=== PATIENT | male | born 1985 | race Caucasian/White ===

== ENCOUNTER 2017-05-03 15:17 | Emergency (ER) | payer MEDICAID ==
[2017-05-03 15:49] VITALS: BP 113/54
--- NOTE | 2017-05-03 16:24 | EDM.PDOC ---
ED HPI GENERAL MEDICAL PROBLEM - General Chief Complaint: General Stated Complaint: FLU CHECK FOR WORK Time Seen by Provider: 05/03/17 16:20 Source of Information: Reports: Patient History Limitations: Reports: No Limitations - History of Present Illness INITIAL COMMENTS - FREE TEXT/NARRATIVE: pt was diagnosed with influ b and missed 2 weeks of work. He is now feeling well and is ready to go back to work. Associated Symptoms: Reports: Other (pt is here for a note to go back to work. ) - Related Data Allergies Allergy/AdvReac Type Severity Reaction Status Date / Time meperidine HCl [From Demerol] Allergy Intermediate Itching Verified 07/19/15 05: 01 tramadol Allergy Intermediate Hives Verified 07/19/15 05:01 Home Meds: Home Meds NK [No Known Home Meds] 07/16/15 [History] Past Medical History HEENT History: Reports: Other (See Below) Other HEENT History: poor dental care Gastrointestinal History: Reports: Other (See Below) Other Gastrointestinal History: Possible ulcers in past. Musculoskeletal History: Reports: Fracture Other Musculoskeletal History: Bilateral wrist fx Psychiatric History: Reports: Addiction, Anxiety Dermatologic History: Reports: Other (See Below) Other Dermatologic History: Tatoos - Infectious Disease History Infectious Disease History: Reports: Chicken Pox Social & Family History - Family History Family Medical History: Noncontributory - Tobacco Use Smoking Status *Q: Current Every Day Smoker Years of Tobacco use: 15 Packs/Tins Daily: 1 Used Tobacco, but Quit: No Second Hand Smoke Exposure: Yes - Alcohol Use Days Per Week of Alcohol Use: 0 - Recreational Drug Use Recreational Drug Use: Yes Drug Use in Last 12 Months: Yes Recreational Drug Type: Reports: Marijuana/Hashish Recreational Drug Use Frequency: Daily Recreational Drug Last Use: 01/31/13 ED ROS GENERAL - Review of Systems Review Of Systems: See Below Constitutional: Reports: No Symptoms HEENT: Reports: No Symptoms Respiratory: Reports: No Symptoms Cardiovascular: Reports: No Symptoms Endocrine: Reports: No Symptoms GI/Abdominal: Reports: No Symptoms : Reports: No Symptoms ED EXAM, GENERAL - Physical Exam Exam: See Below Free Text/Narrative:: Pt is here for a note to go back to work Exam Limited By: No Limitations General Appearance: Alert Course - Vital Signs Last Recorded V/S: Last Vital Signs Temp 36.1 C 05/03/17 15:45 Pulse Resp 16 05/03/17 15:45 BP 113/54 L 05/03/17 15:45 Pulse Ox 99 05/03/17 15:45 - Re-Assessments/Exams Free Text/Narrative Re-Assessment/Exam: 05/03/17 16:22 note was written for him to go back to work Departure - Departure Time of Disposition: 16:23 Disposition: Home, Self-Care 01 Condition: Fair Clinical Impression: Return to work evaluation - Discharge Information Referrals: PCP,None [Primary Care Provider] - Care Plan Goals: note given to pt.
== END 2017-05-03 16:43 | disposition home or self-care (01) ==
LOC: JP.ED 15:17
DX: Z02.1 Encounter for pre-employment examination (principal); F17.210 Nicotine dependence, cigarettes, uncomplicated; Z88.5 Allergy status to narcotic agent
CPT/HCPCS: 99283

== ENCOUNTER 2017-05-31 22:35 | Emergency (ER) | payer MEDICAID ==
[2017-05-31 23:09] VITALS: BP 110/70
--- NOTE | 2017-05-31 23:54 | EDM.PDOC ---
ED HPI GENERAL MEDICAL PROBLEM - General Chief Complaint: General Stated Complaint: COUGH Time Seen by Provider: 05/31/17 23:48 Source of Information: Reports: Patient, RN Notes Reviewed History Limitations: Reports: No Limitations - History of Present Illness INITIAL COMMENTS - FREE TEXT/NARRATIVE: 32-year-old gentleman presents to the emergency department today complaint of cough and not feeling well he states is been ill for about 3 days his daughter was recently diagnosed with influenza and he would like to be checked he is not had any fevers. denies pain Pain Score (Numeric/FACES): 0 - Related Data Allergies Allergy/AdvReac Type Severity Reaction Status Date / Time meperidine HCl [From Demerol] Allergy Intermediate Itching Verified 05/31/17 23: 17 tramadol Allergy Intermediate Hives Verified 05/31/17 23:17 Home Meds: Home Meds NK [No Known Home Meds] 07/16/15 [History] Past Medical History HEENT History: Reports: Other (See Below) Other HEENT History: poor dental care Gastrointestinal History: Reports: Other (See Below) Other Gastrointestinal History: Possible ulcers in past. Musculoskeletal History: Reports: Fracture Other Musculoskeletal History: Bilateral wrist fx Psychiatric History: Reports: Addiction, Anxiety, Other (See Below) Other Psychiatric History: meth Dermatologic History: Reports: Other (See Below) Other Dermatologic History: Tatoos - Infectious Disease History Infectious Disease History: Reports: Chicken Pox Social & Family History - Family History Family Medical History: Noncontributory - Tobacco Use Smoking Status *Q: Current Every Day Smoker Years of Tobacco use: 15 Packs/Tins Daily: 1 Used Tobacco, but Quit: No Second Hand Smoke Exposure: Yes - Caffeine Use Caffeine Use: Reports: Soda - Alcohol Use Days Per Week of Alcohol Use: 0 - Recreational Drug Use Recreational Drug Use: Yes Drug Use in Last 12 Months: No Recreational Drug Type: Reports: Marijuana/Hashish, Methamphetamine Recreational Drug Use Frequency: Daily Recreational Drug Last Use: 01/31/13 ED ROS GENERAL - Review of Systems Review Of Systems: See Below Constitutional: Denies: Fever HEENT: Reports: No Symptoms Respiratory: Reports: Cough. Denies: Shortness of Breath Cardiovascular: Reports: No Symptoms GI/Abdominal: Reports: No Symptoms : Reports: No Symptoms ED EXAM, GENERAL - Physical Exam Exam: See Below Exam Limited By: No Limitations General Appearance: Alert, WD/WN, No Apparent Distress Eye Exam: Bilateral Eye: Normal Inspection Ears: Normal External Exam, Normal Canal, Hearing Grossly Normal, Normal TMs Nose: Normal Inspection, Normal Mucosa, No Blood Throat/Mouth: Normal Inspection, Normal Lips, Normal Teeth, Normal Gums, Normal Oropharynx, Normal Voice, No Airway Compromise Head: Atraumatic, Normocephalic Neck: Normal Inspection, Supple, Non-Tender, Full Range of Motion Respiratory/Chest: No Respiratory Distress, Lungs Clear, Normal Breath Sounds, No Accessory Muscle Use, Chest Non-Tender Cardiovascular: Regular Rate, Rhythm, No Murmur Course - Vital Signs Last Recorded V/S: Last Vital Signs Temp 96.7 F 05/31/17 23:27 Pulse 89 05/31/17 23:27 Resp 14 05/31/17 23:27 BP 110/70 05/31/17 23:27 Pulse Ox 96 05/31/17 23:27 - Orders/Labs/Meds Orders: Active Orders 24 hr Category Date Time Status INFLUENZA A+B AG SCREEN [RM] Stat Lab 05/31/17 23:24 Ordered Departure - Departure Time of Disposition: 23:53 Disposition: Home, Self-Care 01 Condition: Good Clinical Impression: Viral syndrome - Discharge Information Referrals: PCP,None [Primary Care Provider] - Additional Instructions: Recommend symptoms care such as pseudoephedrine, Please followup with your primary care provider in 3-5 days if not better, please call return to the emergency department with worsening of symptoms. - My Orders Last 24 Hours: My Active Orders 05/31/17 23:24 INFLUENZA A+B AG SCREEN [RM] Stat - Assessment/Plan Last 24 Hours: My Active Orders 05/31/17 23:24 INFLUENZA A+B AG SCREEN [RM] Stat Plan: Assessment Acuity = acute Site and laterality = viral syndrome Etiology = unknown etiology Manifestations = sinus congestion, cough Location of injury = Home Lab values = influenza A and B both negative Plan Did review lab work with him recommend symptomatic treatment [id number] such as pseudoephedrine follow-up with primary care 3-5 days if no improvement This note was dictated using HALKAR voice recognition software please call with any questions on syntax or maura.
== END 2017-06-01 00:01 | disposition home or self-care (01) ==
LOC: JP.ED 22:35
DX: B34.9 Viral infection, unspecified (principal); F17.210 Nicotine dependence, cigarettes, uncomplicated; Z88.8 Allergy status to other drugs, medicaments and biological substances
CPT/HCPCS: 87804; 99283; 99284

== ENCOUNTER 2019-01-06 09:40 | Emergency (ER) | payer SELFPAY ==
[2019-01-06 09:47] VITALS: BP 113/69; PULSE 70
[2019-01-06] MEDS ORDERED: Lactated Ringers 1,000 ML IV ONE (09:50)
[2019-01-06] MEDS ORDERED: Ketorolac 30 MG/ML SDV IVPUSH ONE (09:50)
--- NOTE | 2019-01-06 09:56 | EDM.PDOC ---
ED HPI GENERAL MEDICAL PROBLEM - General Chief Complaint: Abdominal Pain Stated Complaint: PAIN IN STOMACH AREA Time Seen by Provider: 01/06/19 09:45 Source of Information: Reports: Patient, EMS, Old Records History Limitations: Reports: No Limitations - History of Present Illness INITIAL COMMENTS - FREE TEXT/NARRATIVE: 33 yo male presents via EMS with onset about 0500h today of RUQ abdominal pain. He had recurrent vomiting with this pain. No hematemesis. No fever. No diarrhea. He has a pHx of pancreatitis, kidney stones, and gastritis. He says this pain reminds him of his kidney stone pain. EMS administered fentanyl and Zofran en route with relief. Onset: Today Onset Date: 01/06/19 Onset Time: 05:00 Duration: Hour(s): Location: Reports: Abdomen (RUQ) Quality: Reports: Ache Severity: Severe Improves with: Reports: Medication Worsens with: Reports: Other (unknown) Context: Reports: Other (See HPI) Associated Symptoms: Reports: Nausea/Vomiting. Denies: Fever/Chills Treatments DIRECTOR TELEVISION: Reports: IV/IO, Other Medication(s) Right Upper Abdomen Pain Score (Numeric/FACES): 5 - Related Data Allergies Allergy/AdvReac Type Severity Reaction Status Date / Time meperidine HCl [From Demerol] Allergy Intermediate Itching Verified 05/31/17 23: 17 tramadol Allergy Intermediate Hives Verified 05/31/17 23:17 Home Meds: Home Meds NK [No Known Home Meds] 07/16/15 [History] Past Medical History - Past Health History Medical/Surgical History: Denies Medical/Surgical History HEENT History: Reports: Other (See Below) Other HEENT History: poor dental care Gastrointestinal History: Reports: Other (See Below) Other Gastrointestinal History: Possible ulcers in past. Musculoskeletal History: Reports: Fracture Other Musculoskeletal History: Bilateral wrist fx Psychiatric History: Reports: Addiction, Anxiety, Other (See Below) Other Psychiatric History: meth Dermatologic History: Reports: Other (See Below) Other Dermatologic History: Tatoos - Infectious Disease History Infectious Disease History: Reports: Chicken Pox Social & Family History - Family History Family Medical History: Noncontributory - Tobacco Use Smoking Status *Q: Current Every Day Smoker Years of Tobacco use: 15 Packs/Tins Daily: 1 - Caffeine Use Caffeine Use: Reports: Soda - Recreational Drug Use Recreational Drug Use: Yes Drug Use in Last 12 Months: Yes Recreational Drug Type: Reports: Marijuana/Hashish Recreational Drug Use Frequency: Daily ED ROS GENERAL - Review of Systems Review Of Systems: See Below Constitutional: Reports: Decreased Appetite HEENT: Reports: No Symptoms Respiratory: Reports: No Symptoms Cardiovascular: Reports: No Symptoms Endocrine: Reports: No Symptoms GI/Abdominal: Reports: Abdominal Pain, Anorexia, Nausea, Vomiting. Denies: Black Stool, Bloody Stool, Constipation, Diarrhea, Decreased Appetite, Distension, Flatus, Hematemesis, Hematochezia, Melena : Reports: No Symptoms Musculoskeletal: Reports: No Symptoms Skin: Reports: No Symptoms Neurological: Reports: No Symptoms Psychiatric: Reports: No Symptoms ED EXAM, GI/ABD - Physical Exam Exam: See Below Exam Limited By: No Limitations General Appearance: Alert, No Apparent Distress, Thin Eyes: Bilateral: Normal Appearance Ears: Normal External Exam, Normal Canal, Hearing Grossly Normal Nose: Normal Inspection, No Blood Throat/Mouth: Normal Inspection, Normal Lips, Normal Oropharynx, Normal Voice, No Airway Compromise Head: Atraumatic, Normocephalic Neck: Normal Inspection Respiratory/Chest: No Respiratory Distress, Lungs Clear, Normal Breath Sounds, No Accessory Muscle Use Cardiovascular: Regular Rate, Rhythm, No Edema GI/Abdominal Exam: Normal Bowel Sounds, Soft, Non-Tender, No Distention, Rebound , Tender, Abnormal Bowel Sounds (decreased). No: Distended, Guarding, Rigid Back Exam: Normal Inspection. No: CVA Tenderness (R), CVA Tenderness (L) Extremities: Normal Inspection, Normal Range of Motion, Non-Tender, No Pedal Edema Neurological: Alert, Oriented, CN II-XII Intact, Normal Cognition, No Motor/ Sensory Deficits Psychiatric: Normal Affect, Normal Mood Skin Exam: Warm, Dry, Intact, Normal Color, No Rash Course - Vital Signs Text/Narrative:: Patient slept in the ER, his sx's did not return. Last Recorded V/S: Last Vital Signs Temp 36.2 C 01/06/19 09:50 Pulse 70 01/06/19 09:50 Resp 18 01/06/19 09:50 BP 113/69 01/06/19 09:50 Pulse Ox 98 01/06/19 09:50 - Orders/Labs/Meds Labs: Laboratory Tests 01/06/19 01/06/1919 Range/Units 09:45 10:10 10:10 WBC 10.6 (4.5-11.0) K/uL RBC 4.56 (4.30-5.90) M/uL Hgb 13.9 (12.0-15.0) g/dL Hct 42.3 (40.0-54.0) % MCV 93 (80-98) fL MCH 31 (27-31) pg MCHC 33 (32-36) % Plt Count 265 (150-400) K/uL Sodium 143 (140-148) mmol/L Potassium 3.9 (3.6-5.2) mmol/L Chloride 106 (100-108) mmol/L Carbon Dioxide 30 (21-32) mmol/L Anion Gap 7.4 (5.0-14.0) mmol/L BUN 10 (7-18) mg/dL Creatinine 1.0 (0.8-1.3) mg/dL Est Cr Clr Drug Dosing 78.24 mL/min Estimated GFR (MDRD) > 60 (>60) Glucose 112 H (74-106) mg/dL Calcium 8.6 (8.5-10.1) mg/dL Total Bilirubin 0.1 L (0.2-1.0) mg/dL AST 18 (15-37) U/L ALT 23 (12-78) U/L Alkaline Phosphatase 74 (46-116) U/L C-Reactive Protein (0.0-0.3) mg/dL Total Protein 6.7 (6.4-8.2) g/dL Albumin 3.3 L (3.4-5.0) g/dL Globulin 3.4 (2.3-3.5) g/dL Albumin/Globulin Ratio 1.0 L (1.2-2.2) Urine Color Yellow (YELLOW) Urine Appearance Clear (CLEAR) Urine pH 8.5 H (5.0-8.0) Ur Specific [place] 1.015 (1.008-1.030) Urine Protein Negative (NEGATIVE) mg/dL Urine Glucose (UA) Negative (NEGATIVE) mg/dL Urine Ketones Negative (NEGATIVE) mg/dL Urine Occult Blood Negative (NEGATIVE) Urine Nitrite Negative (NEGATIVE) Urine Bilirubin Negative (NEGATIVE) Urine Urobilinogen 0.2 (0.2-1.0) EU/dL Ur Leukocyte Esterase Negative (NEGATIVE) Urine RBC 0-5 (0-5) Urine WBC 0-5 (0-5) Ur Epithelial Cells Few Amorphous Sediment Not seen Urine Bacteria Few Urine Mucus Not seen 01/06/19 Range/Units 10:10 WBC (4.5-11.0) K/uL RBC (4.30-5.90) M/uL Hgb (12.0-15.0) g/dL Hct (40.0-54.0) % MCV (80-98) fL MCH (27-31) pg MCHC (32-36) % Plt Count (150-400) K/uL Sodium (140-148) mmol/L Potassium (3.6-5.2) mmol/L Chloride (100-108) mmol/L Carbon Dioxide (21-32) mmol/L Anion Gap (5.0-14.0) mmol/L BUN (7-18) mg/dL Creatinine (0.8-1.3) mg/dL Est Cr Clr Drug Dosing mL/min Estimated GFR (MDRD) (>60) Glucose (74-106) mg/dL Calcium (8.5-10.1) mg/dL Total Bilirubin (0.2-1.0) mg/dL AST (15-37) U/L ALT (12-78) U/L Alkaline Phosphatase (46-116) U/L C-Reactive Protein 0.30 (0.0-0.3) mg/dL Total Protein (6.4-8.2) g/dL Albumin (3.4-5.0) g/dL Globulin (2.3-3.5) g/dL Albumin/Globulin Ratio (1.2-2.2) Urine Color (YELLOW) Urine Appearance (CLEAR) Urine pH (5.0-8.0) Ur Specific [place] (1.008-1.030) Urine Protein (NEGATIVE) mg/dL Urine Glucose (UA) (NEGATIVE) mg/dL Urine Ketones (NEGATIVE) mg/dL Urine Occult Blood (NEGATIVE) Urine Nitrite (NEGATIVE) Urine Bilirubin (NEGATIVE) Urine Urobilinogen (0.2-1.0) EU/dL Ur Leukocyte Esterase (NEGATIVE) Urine RBC (0-5) Urine WBC (0-5) Ur Epithelial Cells Amorphous Sediment Urine Bacteria Urine Mucus Meds: Medications Discontinued Medications Generic Name Dose Route Start Last Admin Trade Name Carlos A PRN Reason Stop Dose Admin Lactated Ringer's 1,000 mls @ 1,000 mls/hr 01/06/19 09:50 01/06/19 10:06 Ringers, Lactated IV 01/06/19 10:49 1,000 mls/hr BOLUS ONE Administration Ketorolac Tromethamine 30 mg 01/06/19 09:50 01/06/19 10:05 Toradol IVPUSH 01/06/19 09:51 30 mg ONETIME ONE Administration Departure - Departure Time of Disposition: 12:58 Disposition: Home, Self-Care 01 Condition: Good Clinical Impression: RUQ abdominal pain Nausea and vomiting Qualifiers: Vomiting type: unspecified Vomiting Intractability: non-intractable Qualified Code(s): R11.2 - Nausea with vomiting, unspecified - Discharge Information *PRESCRIPTION DRUG MONITORING PROGRAM REVIEWED*: No *COPY OF PRESCRIPTION DRUG MONITORING REPORT IN PATIENT MURRAY: No Instructions: Abdominal Pain, Adult Referrals: PCP,None [Primary Care Provider] - Forms: ED Department Discharge Additional Instructions: Clear liquid diet today, advance diet starting tomorrow as tolerated. Acetaminophen as needed. Recheck in the clinic with your provider.
== END 2019-01-06 13:46 | disposition home or self-care (01) ==
LOC: JP.ED 09:40
DX: R10.11 Right upper quadrant pain (principal); R11.2 Nausea with vomiting, unspecified; F17.210 Nicotine dependence, cigarettes, uncomplicated; Z88.5 Allergy status to narcotic agent; Z88.8 Allergy status to other drugs, medicaments and biological substances
CPT/HCPCS: 36415; 80053; 81001; 85027; 86140; 96361; 96374; 99282; 99284; J1885; J7120

== ENCOUNTER 2019-01-07 03:29 | Emergency (ER) | payer SELFPAY ==
[2019-01-07 03:48] VITALS: BP 133/77; PULSE 89
--- NOTE | 2019-01-07 03:55 | EDM.PDOC ---
ED HPI GENERAL MEDICAL PROBLEM - General Chief Complaint: Gastrointestinal Problem Stated Complaint: MEDICAL [facility] Time Seen by Provider: 01/07/19 03:45 Source of Information: Reports: Patient, EMS History Limitations: Reports: No Limitations - History of Present Illness INITIAL COMMENTS - FREE TEXT/NARRATIVE: 33-year-old male with abdominal pain for the past 24 hours. No history of surgeries. He responded to fluids and IV Toradol. His pain returned at 5 PM, becoming unbearable by 10 PM. He tried to sleep but he couldn't sleep because of the pain. He describes it as epigastric radiating to his back and into the right lower quadrant. No fever or chills, some nausea and vomiting. Onset: Unknown/Unsure Duration: Day(s): (2 days) Location: Reports: Abdomen Quality: Reports: Sharp Associated Symptoms: Reports: Malaise, Nausea/Vomiting. Denies: Chest Pain, Shortness of Breath right side abd/epigastric Pain Score (Numeric/FACES): 4 - Related Data Allergies Allergy/AdvReac Type Severity Reaction Status Date / Time meperidine HCl [From Demerol] Allergy Intermediate Itching Verified 01/07/19 03: 35 tramadol Allergy Intermediate Hives Verified 01/07/19 03:35 Home Meds: Home Meds NK [No Known Home Meds] 07/16/15 [History] Past Medical History - Past Health History Medical/Surgical History: Denies Medical/Surgical History HEENT History: Reports: Other (See Below) Other HEENT History: poor dental care Gastrointestinal History: Reports: Other (See Below) Other Gastrointestinal History: Possible ulcers in past. Musculoskeletal History: Reports: Fracture Other Musculoskeletal History: Bilateral wrist fx Psychiatric History: Reports: Addiction, Anxiety, Other (See Below) Other Psychiatric History: meth Dermatologic History: Reports: Other (See Below) Other Dermatologic History: Tatoos - Infectious Disease History Infectious Disease History: Reports: Chicken Pox Social & Family History - Family History Family Medical History: Noncontributory - Caffeine Use Caffeine Use: Reports: Soda ED ROS GENERAL - Review of Systems Review Of Systems: See Below Constitutional: Reports: Malaise. Denies: Fever, Chills HEENT: Denies: Throat Pain Respiratory: Denies: Shortness of Breath, Cough Cardiovascular: Denies: Chest Pain GI/Abdominal: Reports: Abdominal Pain, Nausea, Vomiting. Denies: Diarrhea : Reports: No Symptoms Neurological: Reports: No Symptoms ED EXAM, GI/ABD - Physical Exam Exam: See Below Exam Limited By: No Limitations General Appearance: Alert, Mild Distress (Looks fairly uncomfortable) Eyes: Bilateral: Normal Appearance Head: Atraumatic Respiratory/Chest: No Respiratory Distress, Lungs Clear Cardiovascular: Regular Rate, Rhythm GI/Abdominal Exam: Tender (Very tender to palpation, some guarding along the right abdomen) Neurological: Alert, Oriented Skin Exam: Warm, Dry Course - Vital Signs Last Recorded V/S: Last Vital Signs Temp 97.8 F 01/07/19 03:48 Pulse 89 01/07/19 03:48 Resp 20 01/07/19 03:48 BP 133/77 01/07/19 03:48 Pulse Ox 99 01/07/19 03:48 - Orders/Labs/Meds Labs: Laboratory Tests 01/07/19 01/07/19 01/07/19 Range/Units 03:50 04:02 04:20 WBC 13.2 H (4.5-11.0) K/uL RBC 4.66 (4.30-5.90) M/uL Hgb 14.5 (12.0-15.0) g/dL Hct 43.1 (40.0-54.0) % MCV 93 (80-98) fL MCH 31 (27-31) pg MCHC 34 (32-36) % Plt Count 272 (150-400) K/uL Neut % (Auto) 76 H (36-66) % Lymph % (Auto) 15 L (24-44) % [place] % (Auto) 7 H (2-6) % Eos % (Auto) 2 (2-4) % Baso % (Auto) 0 (0-1) % Lipase 116 (73-393) U/L Urine Opiates Screen Negative (NEGATIVE) Ur Oxycodone Screen Negative (NEGATIVE) Urine Methadone Screen Negative (NEGATIVE) Ur Propoxyphene Screen Negative (NEGATIVE) Ur Barbiturates Screen Negative (NEGATIVE) Ur Tricyclics Screen Negative (NEGATIVE) Ur Phencyclidine Scrn Negative (NEGATIVE) Ur Amphetamine Screen Negative (NEGATIVE) U Methamphetamines Scrn Negative (NEGATIVE) Urine MDMA Screen Negative (NEGATIVE) U Benzodiazepines Scrn Negative (NEGATIVE) U Cocaine Metab Screen Negative (NEGATIVE) U Marijuana (THC) Screen Presumptive positive H (NEGATIVE) Meds: Medications Discontinued Medications Generic Name Dose Route Start Last Admin Trade Name Carlos A PRN Reason Stop Dose Admin Al Hydroxide/Mg Hydroxide 15 0 ml 01/07/19 04:24 01/07/19 04:32 ml/ Lidocaine HCl 15 ml PO 01/07/19 04:25 30 ml ONETIME ONE Administration - Re-Assessments/Exams Free Text/Narrative Re-Assessment/Exam: 01/07/19 03:54 Reviewed his labs and workup from earlier today. CBC and lipase were obtained, urine drug screen obtained, patient will get a CT of the abdomen and pelvis with no contrast. 01/07/19 04:[address] from [address], he was given a GI cocktail. Did not have any emesis but didn't seem to help with his nausea. He continued to have some lower abdominal discomfort. His white count is just slightly elevated at 13.2, lipase was normal and CT the abdomen and pelvis showed no source of pain. He was reassured he likely has a viral gastroenteritis and it needs to run its course. Urine was positive for marijuana, but he says he's been smoking marijuana since he was 13 years old and that is "not it". Departure - Departure Time of Disposition: 05:07 Disposition: Home, Self-Care 01 Clinical Impression: Gastroenteritis - Discharge Information Instructions: Nausea and Vomiting, Adult, [id number] Referrals: PCP,None [Primary Care Provider] - Forms: ED Department Discharge Care Plan Goals: Advance diet slowly as tolerated. Recheck in 2-3 days if not improving satisfactorily.
[2019-01-07] MEDS ORDERED: Alum Hydrox/Mag Hydrox/Simeth 15 ML, Lidocaine 2% 15 ML PO ONE ×2 (04:24)
--- NOTE | 2019-01-07 04:26 | CRLCT ---
INDICATION: Abdominal pain TECHNIQUE: CT Abdomen and pelvis without i.v. contrast. Coronal and sagittal reformats were obtained. COMPARISON: 07/16/2015 FINDINGS: Moderate degradation of image quality is present due to the patient`s inability to maintain a breath hold. Lower chest: Unremarkable. Liver: Unremarkable. Spleen: Unremarkable. Pancreas: Unremarkable. Gallbladder: Unremarkable. Kidney: Small punctate intrarenal stones are present bilaterally. No ureteral calculi or obstruction seen. Compression Adrenal: Unremarkable. Bowel: Unremarkable. The appendix is not identified. Vascular: Unremarkable. Lymph: Unremarkable. Peritoneum: Unremarkable. No pneumoperitoneum is seen. No significant ascites is noted. Pelvis: Unremarkable. Soft tissue: Unremarkable. Bone: Unremarkable for age. IMPRESSION: 1. Unremarkable with no CT correlate for the patient`s symptoms seen. Dictated by Masoud Taylor MD @ 01/07/2019 4:25:32 AM Please note that all CT scans at this facility use dose modulation, iterative reconstruction, and/or weight-based dosing when appropriate to reduce radiation dose to as low as reasonably achievable. Dictated by: Masoud Taylor MD @ 01/07/2019 04:25:34 (Electronically Signed)
== END 2019-01-07 05:06 | disposition home or self-care (01) ==
LOC: JP.ED 03:29
DX: K52.9 Noninfective gastroenteritis and colitis, unspecified (principal); Z88.5 Allergy status to narcotic agent
CPT/HCPCS: 36415; 74176; 80305; 83690; 85025; 99284; A9270; 99283

== ENCOUNTER → 2019-01-12 | Day surgery (SDC) | payer MEDICAID ==
[~2019-01-12] MED LIST: HYDROmorphone 0.5 MG/0.5 ML Syringe IVPUSH ONE; HYDROmorphone 1 MG/ML Syringe IVPUSH ONE; LORazepam 2 MG/ML SDV IVPUSH ONE; Lactated Ringers 1,000 ML IV SCH; Metoclopramide 10 MG/2 ML SDV IVPUSH ONE; Midazolam 1 MG/ML 2 ML SDV ONE; Ondansetron 4 MG/2 ML SDV IVPUSH ONE; Pantoprazole 40 MG Vial IVPUSH ONE; Prochlorperazine 10 MG/2 ML SDV IVPUSH ONE; Propofol 200 MG/20 ML SDV ONE; Sodium Chloride 0.9% 1,000 ML IV SCH; fentaNYL 100 MCG/2 ML SDV ONE
--- NOTE | 2019-01-12 05:52 | EDM.PDOC ---
<Sheyla Freire - Last Filed: 01/12/19 06:33> ED HPI GENERAL MEDICAL PROBLEM - General Chief Complaint: Abdominal Pain Stated Complaint: ABD PAIN Time Seen by Provider: 01/12/19 05:51 Source of Information: Reports: Patient History Limitations: Reports: No Limitations - History of Present Illness INITIAL COMMENTS - FREE TEXT/NARRATIVE: pt arrived with pain in the epigastric and rt upper abdoman. He has been vomiting everything and having severe pain. He has been seen twice before with the pain. Onset: Other ( started 2-3 days afo. ) Duration: Hour(s): Location: Reports: Abdomen Associated Symptoms: Reports: Nausea/Vomiting, Other ( severe upper abdomanal pain. ) abd Pain Score (Numeric/FACES): 6 - Related Data Allergies Allergy/AdvReac Type Severity Reaction Status Date / Time meperidine HCl [From Demerol] Allergy Intermediate Itching Verified 01/12/19 05: 37 tramadol Allergy Intermediate Hives Verified 01/12/19 05:37 Home Meds: Home Meds NK [No Known Home Meds] 07/16/15 [History] Past Medical History - Past Health History Medical/Surgical History: Denies Medical/Surgical History HEENT History: Reports: Other (See Below) Other HEENT History: poor dental care Gastrointestinal History: Reports: Other (See Below) Other Gastrointestinal History: Possible ulcers in past. Musculoskeletal History: Reports: Fracture Other Musculoskeletal History: Bilateral wrist fx Psychiatric History: Reports: Addiction, Anxiety, Other (See Below) Other Psychiatric History: meth Dermatologic History: Reports: Other (See Below) Other Dermatologic History: Tatoos - Infectious Disease History Infectious Disease History: Reports: Chicken Pox Social & Family History - Family History Family Medical History: Noncontributory - Tobacco Use Smoking Status *Q: Current Every Day Smoker Years of Tobacco use: 15 Packs/Tins Daily: 1 - Caffeine Use Caffeine Use: Reports: Soda - Recreational Drug Use Recreational Drug Use: Yes Drug Use in Last 12 Months: Yes Recreational Drug Type: Reports: Marijuana/Hashish Recreational Drug Use Frequency: Daily ED ROS GENERAL - Review of Systems Review Of Systems: See Below Constitutional: Reports: Decreased Appetite, Other (pt has been vomiting everything he eats. ) HEENT: Reports: No Symptoms Respiratory: Reports: No Symptoms Cardiovascular: Reports: No Symptoms Endocrine: Reports: No Symptoms GI/Abdominal: Reports: Abdominal Pain, Decreased Appetite, Nausea, Vomiting, Other (pt had a loose stool this am. ) : Reports: No Symptoms Skin: Reports: No Symptoms Neurological: Reports: No Symptoms Psychiatric: Reports: Anxiety ED EXAM, GI/ABD - Physical Exam Exam: See Below Text/Narrative:: pt states he has been having pain for the last 2 days. He is vomiting everything he eats. He describes his pain in the epigastric and rt upper abdoman. He Is crying and acting very uncomfortable. Exam Limited By: No Limitations General Appearance: Alert, Anxious, Moderate Distress Ears: Normal TMs Nose: Normal Inspection Throat/Mouth: Normal Inspection Head: Atraumatic Neck: Normal Inspection Respiratory/Chest: No Respiratory Distress Cardiovascular: Regular Rate, Rhythm GI/Abdominal Exam: Other (pt is tender in the rt upper abdomana and epigastric area. ) (Male) Exam: Deferred Rectal (Males) Exam: Deferred Back Exam: Normal Inspection Extremities: Normal Inspection Neurological: Alert, Oriented, Normal Cognition Psychiatric: Anxious, Tearful Course - Vital Signs Last Recorded V/S: Last Vital Signs Temp 98 F 01/12/19 14:27 Pulse 82 01/12/19 14:44 Resp 16 01/12/19 14:27 BP 101/66 01/12/19 14:44 Pulse Ox 99 01/12/19 14:44 - Orders/Labs/Meds Orders: Active Orders 24 hr Category Date Time Status Lactated Ringers [Ringers, Lactated] 1,000 ml Med 01/12/19 13:15 Active IV ASDIRECTED Sodium Chloride 0.9% [Normal Saline] 1,000 ml Med 01/12/19 06:00 Active IV ASDIRECTED Sodium Chloride 0.9% [Normal Saline] 1,000 ml Med 01/12/19 06:45 Active IV ASDIRECTED Medication Orders Sodium Chloride (Normal Saline) 1,000 mls @ 999 mls/hr IV ASDIRECTED ALMA Last Admin: 01/12/19 06:04 Dose: 999 mls/hr Sodium Chloride (Normal Saline) 1,000 mls @ 999 mls/hr IV ASDIRECTED ALMA Last Admin: 01/12/19 07:19 Dose: 999 mls/hr Lactated Ringer's (Ringers, Lactated) 1,000 mls @ 150 mls/hr IV ASDIRECTED [facility] Labs: Laboratory Tests 01/12/19 01/12/19 01/12/19 Range/Units 06:04 06:04 06:04 WBC 12.1 H (4.5-11.0) K/uL RBC 4.65 (4.30-5.90) M/uL Hgb 14.5 (12.0-15.0) g/dL Hct 43.1 (40.0-54.0) % MCV 93 (80-98) fL MCH 31 (27-31) pg MCHC 34 (32-36) % Plt Count 274 (150-400) K/uL Neut % (Auto) 73 H (36-66) % Lymph % (Auto) 18 L (24-44) % Noble % (Auto) 7 H (2-6) % Eos % (Auto) 3 (2-4) % Baso % (Auto) 0 (0-1) % Sodium 143 (140-148) mmol/L Potassium 3.8 (3.6-5.2) mmol/L Chloride 105 (100-108) mmol/L Carbon Dioxide 27 (21-32) mmol/L Anion Gap 11.4 (5.0-14.0) mmol/L BUN 11 (7-18) mg/dL Creatinine 1.1 (0.8-1.3) mg/dL Est Cr Clr Drug Dosing 74.22 mL/min Estimated GFR (MDRD) > 60 (>60) Glucose 139 H (74-106) mg/dL Calcium 9.1 (8.5-10.1) mg/dL Total Bilirubin 0.1 L (0.2-1.0) mg/dL AST 13 L (15-37) U/L ALT 19 (12-78) U/L Alkaline Phosphatase 80 (46-116) U/L C-Reactive Protein 1.48 H (0.0-0.3) mg/dL Total Protein 7.1 (6.4-8.2) g/dL Albumin 3.5 (3.4-5.0) g/dL Globulin 3.6 H (2.3-3.5) g/dL Albumin/Globulin Ratio 1.0 L (1.2-2.2) Amylase 43 (25-115) U/L Lipase 97 (73-393) U/L Urine Color (YELLOW) Urine Appearance (CLEAR) Urine pH (5.0-8.0) Ur Specific [place] (1.008-1.030) Urine Protein (NEGATIVE) mg/dL Urine Glucose (UA) (NEGATIVE) mg/dL Urine Ketones (NEGATIVE) mg/dL Urine Occult Blood (NEGATIVE) Urine Nitrite (NEGATIVE) Urine Bilirubin (NEGATIVE) Urine Urobilinogen (0.2-1.0) EU/dL Ur Leukocyte Esterase (NEGATIVE) Urine RBC (0-5) Urine WBC (0-5) Ur Epithelial Cells Amorphous Sediment Urine Bacteria Urine Mucus Urine Opiates Screen (NEGATIVE) Ur Oxycodone Screen (NEGATIVE) Urine Methadone Screen (NEGATIVE) Ur Propoxyphene Screen (NEGATIVE) Ur Barbiturates Screen (NEGATIVE) Ur Tricyclics Screen (NEGATIVE) Ur Phencyclidine Scrn (NEGATIVE) Ur Amphetamine Screen (NEGATIVE) U Methamphetamines Scrn (NEGATIVE) Urine MDMA Screen (NEGATIVE) U Benzodiazepines Scrn (NEGATIVE) U Cocaine Metab Screen (NEGATIVE) U Marijuana (THC) Screen (NEGATIVE) 01/12/19 01/12/19 Range/Units 06:05 06:05 WBC (4.5-11.0) K/uL RBC (4.30-5.90) M/uL Hgb (12.0-15.0) g/dL Hct (40.0-54.0) % MCV (80-98) fL MCH (27-31) pg MCHC (32-36) % Plt Count (150-400) K/uL Neut % (Auto) (36-66) % Lymph % (Auto) (24-44) % Noble % (Auto) (2-6) % Eos % (Auto) (2-4) % Baso % (Auto) (0-1) % Sodium (140-148) mmol/L Potassium (3.6-5.2) mmol/L Chloride (100-108) mmol/L Carbon Dioxide (21-32) mmol/L Anion Gap (5.0-14.0) mmol/L BUN (7-18) mg/dL Creatinine (0.8-1.3) mg/dL Est Cr Clr Drug Dosing mL/min Estimated GFR (MDRD) (>60) Glucose (74-106) mg/dL Calcium (8.5-10.1) mg/dL Total Bilirubin (0.2-1.0) mg/dL AST (15-37) U/L ALT (12-78) U/L Alkaline Phosphatase (46-116) U/L C-Reactive Protein (0.0-0.3) mg/dL Total Protein (6.4-8.2) g/dL Albumin (3.4-5.0) g/dL Globulin (2.3-3.5) g/dL Albumin/Globulin Ratio (1.2-2.2) Amylase (25-115) U/L Lipase (73-393) U/L Urine Color Yellow (YELLOW) Urine Appearance Cloudy A (CLEAR) Urine pH 7.0 (5.0-8.0) Ur Specific [place] 1.020 (1.008-1.030) Urine Protein Negative (NEGATIVE) mg/dL Urine Glucose (UA) Negative (NEGATIVE) mg/dL Urine Ketones Negative (NEGATIVE) mg/dL Urine Occult Blood Trace-intact H (NEGATIVE) Urine Nitrite Negative (NEGATIVE) Urine Bilirubin Negative (NEGATIVE) Urine Urobilinogen 0.2 (0.2-1.0) EU/dL Ur Leukocyte Esterase Negative (NEGATIVE) Urine RBC 0-5 (0-5) Urine WBC 0-5 (0-5) Ur Epithelial Cells Not seen Amorphous Sediment Many Urine Bacteria Not seen Urine Mucus Not seen Urine Opiates Screen Negative (NEGATIVE) Ur Oxycodone Screen Negative (NEGATIVE) Urine Methadone Screen Negative (NEGATIVE) Ur Propoxyphene Screen Negative (NEGATIVE) Ur Barbiturates Screen Negative (NEGATIVE) Ur Tricyclics Screen Negative (NEGATIVE) Ur Phencyclidine Scrn Negative (NEGATIVE) Ur Amphetamine Screen Negative (NEGATIVE) U Methamphetamines Scrn Negative (NEGATIVE) Urine MDMA Screen Negative (NEGATIVE) U Benzodiazepines Scrn Negative (NEGATIVE) U Cocaine Metab Screen Negative (NEGATIVE) U Marijuana (THC) Screen Presumptive positive H (NEGATIVE) Meds: Medications Generic Name Dose Route Start Last Admin Trade Name Freq PRN Reason Stop Dose Admin Sodium Chloride 1,000 mls @ 999 mls/hr 01/12/19 06:00 01/12/19 06:04 Normal Saline IV 999 mls/hr ASDIRECTED ALMA Administration Sodium Chloride 1,000 mls @ 999 mls/hr 01/12/19 06:45 01/12/19 07:19 Normal Saline IV 999 mls/hr ASDIRECTED ALMA Administration Lactated Ringer's 1,000 mls @ 150 mls/hr 01/12/19 13:15 Ringers, Lactated IV ASDIRECTED ALMA Discontinued Medications Generic Name Dose Route Start Last Admin Trade Name Carlos A PRN Reason Stop Dose Admin Fentanyl Confirm 01/12/19 11:41 Sublimaze Administered 01/12/19 11:42 Dose 100 mcg .ROUTE .STK-MED ONE Hydromorphone HCl 1 mg 01/12/19 05:50 01/12/19 06:11 Dilaudid IVPUSH 01/12/19 05:51 1 mg ONETIME ONE Administration Hydromorphone HCl 0.5 mg 01/12/19 06:59 01/12/19 07:17 Dilaudid IVPUSH 01/12/19 07:00 0.5 mg ONETIME ONE Administration Lorazepam 1 mg 01/12/19 06:18 01/12/19 06:23 Ativan IVPUSH 01/12/19 06:19 1 mg ONETIME ONE Administration Metoclopramide HCl 10 mg 01/12/19 12:03 01/12/19 12:07 Reglan IVPUSH 01/12/19 12:04 10 mg ONETIME ONE Administration Midazolam HCl Confirm 01/12/19 11:42 Versed 1 Mg/Ml Administered 01/12/19 11:43 Dose 2 mg .ROUTE .STK-MED ONE Ondansetron HCl 4 mg 01/12/19 05:53 01/12/19 06:08 Zofran IVPUSH 01/12/19 05:54 4 mg ONETIME ONE Administration Pantoprazole Sodium 40 mg 01/12/19 06:21 01/12/19 06:34 Protonix Iv IVPUSH 01/12/19 06:22 40 mg ONETIME ONE Administration Prochlorperazine Edisylate 10 mg 01/12/19 06:59 01/12/19 07:17 Compazine IVPUSH 01/12/19 07:00 10 mg ONETIME ONE Administration Propofol Confirm 01/12/19 11:41 Diprivan 20 Ml Administered 01/12/19 11:42 Dose 200 mg .ROUTE .STK-MED ONE Departure - Departure Disposition: Home, Self-Care 01 Clinical Impression: Nausea and vomiting Qualifiers: Vomiting type: unspecified Vomiting Intractability: non-intractable Qualified Code(s): R11.2 - Nausea with vomiting, unspecified - Discharge Information - My Orders Last 24 Hours: My Active Orders 01/12/19 13:15 Lactated Ringers [Ringers, Lactated] 1,000 ml IV ASDIRECTED - Assessment/Plan Last 24 Hours: My Active Orders 01/12/19 13:15 Lactated Ringers [Ringers, Lactated] 1,000 ml IV ASDIRECTED <Gonsalo Mancilla - Last Filed: 01/12/19 16:31> Course - Re-Assessments/Exams Free Text/Narrative Re-Assessment/Exam: 01/12/19 12:04 Care turned over from Dr. Freire pending a gallbladder ultrasound. This was normal, and I discussed his condition with Dr. Muse and he will do an EGD later today. Patient rested quietly for the majority of the morning but awoke with intense nausea and vomiting. He will be given 10 mg of IV Reglan. 01/12/19 14:29 Patient returns from his EGD. Mild GERD was found, a biopsy taken. He is sleeping soundly on return. He'll be given an Instymed for Zofran to use 3 times a day for the next 2 days, a prescription for 20 mg of omeprazole daily, and will recheck with Dr. Crowley at 10 AM on Thursday. Departure - Departure Time of Disposition: 15:13
--- NOTE | 2019-01-12 07:10 | CRLCR ---
INDICATION: ABD PAIN, PRIOR CT DONE 5 DAY AGO CRL READ Indication: Abdominal pain. Technique: Acute abdominal series. Frontal chest radiograph, two views of the abdomen. Comparison: CT of the abdomen and pelvis, 01/07/2019. Findings: There is a nonobstructive bowel gas pattern. No pneumoperitoneum. The osseous structures are intact. No soft tissue mass by plain film. No suspicious calcification. There is no acute airspace disease. Lateral costophrenic sulci are sharp. Heart size and pulmonary vasculature are within normal limits. No displaced rib fracture. There is a well-circumscribed nodule in the right midlung zone, measuring 8 millimeters. This could represent a nipple shadow. Impression: 1. Nonobstructive bowel gas pattern. 2. No free air. 3. No acute airspace disease. 4. Well-circumscribed, 8 millimeter nodule in the right midlung zone. A nipple shadow is favored. This could be further assessed with radiographs with nipple markers. Dictated by Neo Bennett MD @ 01/12/2019 7:08:50 AM Dictated by: Neo Bennett MD @ 01/12/2019 07:09:00 (Electronically Signed)
--- NOTE | 2019-01-12 08:15 | CRLUS ---
INDICATION: upper abd pain comparison is a ct from 01-07-19 Indication: Upper abdominal pain. Technique: Ultrasound of the abdomen limited. Comparison: CT of the abdomen and pelvis, 01/07/2019. Findings: Pancreas is normal where visualized. No peripancreatic fluid collections are seen. No solid hepatic mass. No dilation of intrahepatic biliary radicals. No perihepatic ascites. Right kidney measures 11.9 cm in length. No hydronephrosis or solid mass. No perinephric fluid collection. Gallbladder is contracted. No secondary signs for cholecystitis. Negative sonographic Mcmahon`s sign. The extrahepatic common duct measures 3 millimeters at the radha hepatis. Main portal vein is patent. No abdominal ascites. Impression: No findings are seen on ultrasound to explain the patient`s pain. Dictated by Neo Bennett MD @ 01/12/2019 8:13:34 AM Dictated by: Neo Bennett MD @ 01/12/2019 08:13:45 (Electronically Signed)
[2019-01-12 14:52] VITALS: BP 101/66; PULSE 82
--- NOTE | 2019-01-12 15:30 | OR ---
DATE OF PROCEDURE: 01/12/2019 SURGEON: Akbar Muse MD PREOPERATIVE DIAGNOSIS: Abdominal pain, nausea, vomiting. POSTOPERATIVE DIAGNOSIS: Abdominal pain, nausea, vomiting, gastroesophageal reflux disease. PROCEDURE PERFORMED: Esophagogastroduodenoscopy with biopsy of gastroesophageal junction. ANESTHESIA: IV anesthesia with monitored anesthesia care. INDICATION: This is a 33-year-old white male who has been seeking medical care because of abdominal pain, nausea, and vomiting. He has had an extensive workup including CAT scan of abdomen and pelvis and ultrasound of his abdomen, and those have been unrevealing. A request was made for upper endoscopy. I counseled him for upper endoscopy with possible biopsy including risks and alternatives and gave his informed consent to proceed. DESCRIPTION OF PROCEDURE: The patient was placed in the left lateral decubitus position. IV anesthesia was administered by the Anesthesia Service. Time-out was held. The flexible video Olympus upper endoscope was passed through his mouth, down his esophagus, and into his stomach. The scope was easily passed through the pylorus into the duodenum reaching its third portion. The scope was then slowly withdrawn examining the mucosa throughout. The duodenal mucosa appeared unremarkable. The scope was brought up through the pylorus into the antrum. This appeared unremarkable. The scope was retroflexed. The proximal stomach appeared unremarkable. The scope was straightened and brought up to the GE junction. The Z- line was not straight and there was just evidence of old chronic inflammation here. We obtained multiple totalling at least 6 biopsies of the gastroesophageal junction. The scope was then brought up through the remainder of the esophagus which otherwise appeared unremarkable and was removed. He tolerated the procedure well. Akbar Muse MD /[id number]
== END ==
LOC: JP.ED 05:17 → JP.SDS 13:42
PROVIDERS: ATTEND Surgery
DX: K21.0 Gastro-esophageal reflux disease with esophagitis (principal); K22.70 Barrett's esophagus without dysplasia; F17.200 Nicotine dependence, unspecified, uncomplicated; Z88.5 Allergy status to narcotic agent
CPT/HCPCS: 36415; 43239; 74022; 76705; 80053; 80305; 81001; 82150; 82271; 83690; 85025; 86140; 96360; 96361; 99284; C9113; J0780; J1170; J2060; J2250; J2405; J2704; J2765; J3010; J7030; 88305

== ENCOUNTER 2019-04-08 01:31 | Emergency (ER) | payer MEDICAID ==
--- NOTE | 2019-04-08 01:33 | EDM.PDOC ---
ED HPI GENERAL MEDICAL PROBLEM - General Chief Complaint: Abdominal Pain Stated Complaint: [facility] Time Seen by Provider: 04/08/19 01:32 Source of Information: Reports: Patient, EMS History Limitations: Reports: No Limitations - History of Present Illness INITIAL COMMENTS - FREE TEXT/NARRATIVE: 34 years old male patient presented with a chief complaint of abdominal pain has been going on for 2 days. Progressively getting worse. Mainly in the epigastric and right upper abdomen. Cramping. No radiation. Associated with nausea. Constant. Worse when he lays down. Better when he sit up. Denies any fever. Denies any cough. Denies any chest pain shortness breath. Denies any diarrhea or constipation. Denies any urinary symptom. Given 4 Zofran by EMS prior to arrival. Abdomen Pain Score (Numeric/FACES): 8 - Related Data Allergies Allergy/AdvReac Type Severity Reaction Status Date / Time meperidine HCl [From Demerol] Allergy Intermediate Itching Verified 04/08/19 01: 33 tramadol Allergy Intermediate Hives Verified 04/08/19 01:33 Home Meds: Home Meds NK [No Known Home Meds] 07/16/15 [History] Past Medical History - Past Health History Medical/Surgical History: Denies Medical/Surgical History HEENT History: Reports: Other (See Below) Other HEENT History: poor dental care Gastrointestinal History: Reports: Other (See Below) Other Gastrointestinal History: Possible ulcers in past. Musculoskeletal History: Reports: Fracture Other Musculoskeletal History: Bilateral wrist fx Psychiatric History: Reports: Addiction, Anxiety, Other (See Below) Other Psychiatric History: meth Dermatologic History: Reports: Other (See Below) Other Dermatologic History: Tatoos - Infectious Disease History Infectious Disease History: Reports: Chicken Pox Social & Family History - Family History Family Medical History: Noncontributory - Caffeine Use Caffeine Use: Reports: Soda ED ROS GENERAL - Review of Systems Review Of Systems: Comprehensive ROS is negative, except as noted in HPI. ED EXAM, GI/ABD - Physical Exam Exam: See Below Exam Limited By: No Limitations General Appearance: Alert, WD/WN, No Apparent Distress Nose: Normal Inspection, Normal Mucosa, No Blood Throat/Mouth: Normal Inspection, Normal Lips, Normal Teeth, Normal Gums, Normal Oropharynx, Normal Voice, No Airway Compromise Head: Atraumatic, Normocephalic Neck: Normal Inspection, Supple, Non-Tender, Full Range of Motion Respiratory/Chest: No Respiratory Distress, Lungs Clear, Normal Breath Sounds, No Accessory Muscle Use, Chest Non-Tender Cardiovascular: Normal Peripheral Pulses, Regular Rate, Rhythm, No Edema, No Gallop, No JVD, No Murmur, No Rub GI/Abdominal Exam: Normal Bowel Sounds, No Organomegaly, No Distention, Tender, Other (Right upper quadrant tenderness, epigastric tenderness. No guarding no rebound.). No: Hernia Extremities: Normal Inspection, Normal Range of Motion, Non-Tender, Normal Capillary Refill, No Pedal Edema Neurological: Alert, Oriented, CN II-XII Intact, Normal Cognition, Normal Gait, Normal Reflexes, No Motor/Sensory Deficits Course - Vital Signs Last Recorded V/S: Last Vital Signs Temp 35.9 C 04/08/19 01:41 Pulse 52 L 04/08/19 02:05 Resp 16 04/08/19 02:05 BP 107/65 04/08/19 02:05 Pulse Ox 98 04/08/19 01:41 - Orders/Labs/Meds Labs: Laboratory Tests 04/08/19 04/08/19 04/08/19 Range/Units 01:45 01:45 01:45 WBC 17.2 H (4.5-11.0) K/uL RBC 4.89 (4.30-5.90) M/uL Hgb 15.5 H (12.0-15.0) g/dL Hct 45.4 (40.0-54.0) % MCV 93 (80-98) fL MCH 32 H (27-31) pg MCHC 34 (32-36) % Plt Count 283 (150-400) K/uL Neut % (Auto) 69 H (36-66) % Lymph % (Auto) 20 L (24-44) % [place] % (Auto) 7 H (2-6) % Eos % (Auto) 3 (2-4) % Baso % (Auto) 1 (0-1) % PT 10.6 (9.5-12.0) sec INR 0.98 (0.80-1.20) Sodium 138 L (140-148) mmol/L Potassium 3.6 (3.6-5.2) mmol/L Chloride 103 (100-108) mmol/L Carbon Dioxide 25 (21-32) mmol/L Anion Gap 13.6 (5.0-14.0) mmol/L BUN 7 (7-18) mg/dL Creatinine 1.0 (0.8-1.3) mg/dL Est Cr Clr Drug Dosing 87.63 mL/min Estimated GFR (MDRD) > 60 (>60) Glucose 104 (74-106) mg/dL Lactic Acid (0.4-2.0) mmol/L Calcium 8.9 (8.5-10.1) mg/dL Total Bilirubin 0.2 D (0.2-1.0) mg/dL AST 13 L (15-37) U/L ALT 29 (12-78) U/L Alkaline Phosphatase 81 (46-116) U/L C-Reactive Protein 0.14 (0.0-0.3) mg/dL Total Protein 7.6 (6.4-8.2) g/dL Albumin 3.8 (3.4-5.0) g/dL Globulin 3.8 H (2.3-3.5) g/dL Albumin/Globulin Ratio 1.0 L (1.2-2.2) Lipase 130 (73-393) U/L Urine Color (YELLOW) Urine Appearance (CLEAR) Urine pH (5.0-8.0) Ur Specific [place] (1.008-1.030) Urine Protein (NEGATIVE) mg/dL Urine Glucose (UA) (NEGATIVE) mg/dL Urine Ketones (NEGATIVE) mg/dL Urine Occult Blood (NEGATIVE) Urine Nitrite (NEGATIVE) Urine Bilirubin (NEGATIVE) Urine Urobilinogen (0.2-1.0) EU/dL Ur Leukocyte Esterase (NEGATIVE) Urine RBC (0-5) Urine WBC (0-5) Ur Epithelial Cells Amorphous Sediment Urine Bacteria Urine Mucus 04/08/19 04/08/19 Range/Units 01:45 02:39 WBC (4.5-11.0) K/uL RBC (4.30-5.90) M/uL Hgb (12.0-15.0) g/dL Hct (40.0-54.0) % MCV (80-98) fL MCH (27-31) pg MCHC (32-36) % Plt Count (150-400) K/uL Neut % (Auto) (36-66) % Lymph % (Auto) (24-44) % [place] % (Auto) (2-6) % Eos % (Auto) (2-4) % Baso % (Auto) (0-1) % PT (9.5-12.0) sec INR (0.80-1.20) Sodium (140-148) mmol/L Potassium (3.6-5.2) mmol/L Chloride (100-108) mmol/L Carbon Dioxide (21-32) mmol/L Anion Gap (5.0-14.0) mmol/L BUN (7-18) mg/dL Creatinine (0.8-1.3) mg/dL Est Cr Clr Drug Dosing mL/min Estimated GFR (MDRD) (>60) Glucose (74-106) mg/dL Lactic Acid 1.9 (0.4-2.0) mmol/L Calcium (8.5-10.1) mg/dL Total Bilirubin (0.2-1.0) mg/dL AST (15-37) U/L ALT (12-78) U/L Alkaline Phosphatase (46-116) U/L C-Reactive Protein (0.0-0.3) mg/dL Total Protein (6.4-8.2) g/dL Albumin (3.4-5.0) g/dL Globulin (2.3-3.5) g/dL Albumin/Globulin Ratio (1.2-2.2) Lipase (73-393) U/L Urine Color Yellow (YELLOW) Urine Appearance Clear (CLEAR) Urine pH 6.5 (5.0-8.0) Ur Specific [place] 1.010 (1.008-1.030) Urine Protein Negative (NEGATIVE) mg/dL Urine Glucose (UA) Negative (NEGATIVE) mg/dL Urine Ketones Negative (NEGATIVE) mg/dL Urine Occult Blood Negative (NEGATIVE) Urine Nitrite Negative (NEGATIVE) Urine Bilirubin Negative (NEGATIVE) Urine Urobilinogen 0.2 (0.2-1.0) EU/dL Ur Leukocyte Esterase Negative (NEGATIVE) Urine RBC Not seen (0-5) Urine WBC Not seen (0-5) Ur Epithelial Cells Not seen Amorphous Sediment Not seen Urine Bacteria Not seen Urine Mucus Not seen Meds: Medications Discontinued Medications Generic Name Dose Route Start Last Admin Trade Name Freq PRN Reason Stop Dose Admin Sodium Chloride 1,000 mls @ 999 mls/hr 04/08/19 01:35 04/08/19 01:51 Normal Saline IV 04/08/19 02:35 999 mls/hr .BOLUS STA Administration Sodium Chloride 70 mls @ 3 mls/sec 04/08/19 02:47 04/08/19 02:55 Normal Saline IV 04/08/19 02:48 3 mls/sec ASDIRECTED STA Administration Iopamidol 100 ml 04/08/19 02:46 04/08/19 02:55 Isovue-300 (61%) IV 04/08/19 02:47 100 ml . DIRECTED STA Administration Morphine Sulfate 4 mg 04/08/19 01:35 04/08/19 01:46 Morphine IVPUSH 04/08/19 01:36 4 mg ONETIME ONE Administration Ondansetron HCl 4 mg 04/08/19 01:39 04/08/19 01:45 Zofran IVPUSH 04/08/19 01:40 4 mg ONETIME ONE Administration - Re-Assessments/Exams Free Text/Narrative Re-Assessment/Exam: 04/08/19 01:42 Patient was seen and examined shortly after arrival. Stable. Given 1 L normal saline bolus, 4 mg IV morphine, 4 mg IV Zofran. Lab and imaging reviewed with the patient. Slightly elevated white count. CT scan shows concern about possible enteritis. Broad differential diagnosis was considered including but not limited to acute appendicitis, acute cholecystitis, acute pancreatitis, colitis, diverticulitis, pyelonephritis ,bowel obstruction, perforated bowel, peptic ulcer, etc. Again CT scan shows finding concerning for enteritis. Patient symptom markedly improved, almost resolved. Advised to rest, hydration, Tylenol for discomfort,. BRAT Diet, follow-up with your primary doctor later today for reevaluation, come back for any concern or any worsening symptom. Patient agrees with the plan. Stable for discharge. 04/08/19 03:52 04/08/19 03:57 Departure - Departure Time of Disposition: 03:55 Disposition: Home, Self-Care 01 Condition: Good Clinical Impression: Abdominal pain, Enteritis - Discharge Information Instructions: Peptic Ulcer, Viral Gastroenteritis, Adult, Abdominal Pain, Adult , [id number] Referrals: PCP,None [Primary Care Provider] - Forms: ED Department Discharge Additional Instructions: Advised to rest, hydration, Tylenol for discomfort,. BRAT Diet, follow-up with your primary doctor later today for reevaluation, come back for any concern or any worsening symptom Sepsis Event Note - Focused Exam Vital Signs: Vital Signs Temp Pulse Resp BP Pulse Ox 04/08/19 02:05 52 L 16 107/65 04/08/19 01:41 35.9 C 70 18 126/78 98 04/08/19 01:34 35.9 C 70 18 126/78 98 Date Exam was Performed: 04/08/19 Time Exam was Performed: 03:52 - Assessment/Plan Plan: Advised to rest, hydration, Tylenol for discomfort,. BRAT Diet, follow-up with your primary doctor later today for reevaluation, come back for any concern or any worsening symptom
[2019-04-08] MEDS ORDERED: Morphine 4 MG/ML Syringe IVPUSH ONE (01:35)
[2019-04-08] MEDS ORDERED: Sodium Chloride 0.9% 1,000 ML IV STA (01:35)
[2019-04-08] MEDS ORDERED: Ondansetron 4 MG/2 ML SDV IVPUSH ONE (01:39)
[2019-04-08 02:28] VITALS: BP 107/65; PULSE 52
[2019-04-08] MEDS ORDERED: Iopamidol 612 MG/ML 100 ML Bottle IV STA (02:46)
--- NOTE | 2019-04-08 03:43 | CRLCT ---
INDICATION: Upper abdominal pain TECHNIQUE: CT abdomen and pelvis acquired with 100 cc Isovue-300 intravenous contrast. COMPARISON: Abdomen and pelvis CT 01/07/2019 FINDINGS: Lower chest: Unremarkable. Liver: Normal in contour with a stable subcentimeter hypodense lesion at the dome of the liver. Gallbladder and bile ducts: Unremarkable. No stones or inflammation. No biliary dilatation. Pancreas: Unremarkable. No mass or inflammation. Spleen: Unremarkable. Normal in size. No masses. Adrenal glands: Unremarkable. No nodules. Kidneys: Unremarkable. No masses, stones, or hydronephrosis. GI tract: Mild dilation of the duodenum and proximal jejunum with mucosal fold thickening. No well-defined single point of transition. Remainder of the small bowel as well as the colon are decompressed. Appendix not well seen (possibly on series 3, image 42) although no pericecal inflammation is identified. Vasculature: Unremarkable. Pelvis: Unremarkable. Bones: Unremarkable for age. IMPRESSION: Mild distention with some fold thickening of the duodenum and proximal jejunum without well-defined transition point. Appearance is most consistent with an enteritis. Please note that all CT scans at this facility use dose modulation, iterative reconstruction, and/or weight-based dosing when appropriate to reduce radiation dose to as low as reasonably achievable. Dictated by Ascencion Anaya MD @ Apr 08 2019 3:32AM Signed by Dr. Ascencion Anaya @ Apr 08 2019 3:42AM
== END 2019-04-08 04:11 | disposition home or self-care (01) ==
LOC: JP.ED 01:31
DX: K52.9 Noninfective gastroenteritis and colitis, unspecified (principal); Z88.6 Allergy status to analgesic agent; Z88.5 Allergy status to narcotic agent
CPT/HCPCS: 36415; 74177; 80053; 81001; 83605; 83690; 85025; 85610; 86140; 96361; 96374; 96375; 99284; J2270; J2405; J7030; J7050; Q9967

== ENCOUNTER 2019-08-24 07:45 | Emergency (ER) | payer MEDICAID ==
[2019-08-24] MEDS ORDERED: HYDROmorphone 0.5 MG/0.5 ML Syringe IVPUSH ONE (07:47)
[2019-08-24] MEDS ORDERED: diphenhydrAMINE 50 MG/ML SDV IVPUSH ONE ×2 (07:48→10:14)
[2019-08-24] MEDS ORDERED: Prochlorperazine 10 MG/2 ML SDV IVPUSH ONE ×2 (07:48→08:37)
--- NOTE | 2019-08-24 07:58 | EDM.PDOC ---
ED HPI GENERAL MEDICAL PROBLEM - General Chief Complaint: Gastrointestinal Problem Stated Complaint: VOMITING Time Seen by Provider: 08/24/19 07:45 Source of Information: Reports: Patient, Old Records History Limitations: Reports: Other (patient too distressed apparently to fully cooperate with exam/history ) - History of Present Illness INITIAL COMMENTS - FREE TEXT/NARRATIVE: 34 yo male presents with severe epigastric pain and vomiting that began about 0200h last night. He has had this before and nothing has been found. Has no pHx of surgery. Reports regular marijuana use. Denies other drug use, but has a pHx of meth use. Says he does not have a primary care provider. Pain is constant and in the epigastric area. Onset: Today Onset Date: 08/24/19 Onset Time: 02:00 Duration: Hour(s):, Constant Location: Reports: Abdomen Quality: Reports: Ache, Sharp Severity: Severe Improves with: Reports: None Worsens with: Reports: Other (unknown) Context: Reports: Other (See HPI) Associated Symptoms: Reports: Nausea/Vomiting. Denies: Fever/Chills, Rash Treatments LINUX ADMINISTRATOR: Reports: Other (see below) (none) - Related Data Allergies Allergy/AdvReac Type Severity Reaction Status Date / Time meperidine HCl [From Demerol] Allergy Intermediate Itching Verified 04/08/19 01: 33 tramadol Allergy Intermediate Hives Verified 04/08/19 01:33 Home Meds: Home Meds NK [No Known Home Meds] 07/16/15 [History] Past Medical History - Past Health History Medical/Surgical History: Denies Medical/Surgical History HEENT History: Reports: Other (See Below) Other HEENT History: poor dental care Gastrointestinal History: Reports: Other (See Below) Other Gastrointestinal History: Possible ulcers in past. Musculoskeletal History: Reports: Fracture Other Musculoskeletal History: Bilateral wrist fx Psychiatric History: Reports: Addiction, Anxiety, Other (See Below) Other Psychiatric History: meth Dermatologic History: Reports: Other (See Below) Other Dermatologic History: Tatoos - Infectious Disease History Infectious Disease History: Reports: Chicken Pox - Past Surgical History GI Surgical History: Reports: EGD Social & Family History - Family History Family Medical History: Noncontributory - Caffeine Use Caffeine Use: Reports: Soda ED ROS GENERAL - Review of Systems Review Of Systems: See Below Constitutional: Reports: No Symptoms HEENT: Reports: No Symptoms Respiratory: Reports: No Symptoms Cardiovascular: Reports: No Symptoms Endocrine: Reports: No Symptoms GI/Abdominal: Reports: Abdominal Pain (upper), Hematemesis (possibly), Nausea, Vomiting. Denies: Black Stool, Bloody Stool, Constipation, Diarrhea, Hematochezia, Melena : Reports: No Symptoms Musculoskeletal: Reports: No Symptoms Skin: Reports: No Symptoms ED EXAM, GI/ABD - Physical Exam Exam: See Below Exam Limited By: No Limitations General Appearance: Alert, Moderate Distress, Thin Eyes: Bilateral: Normal Appearance Ears: Normal External Exam, Normal Canal, Hearing Grossly Normal Nose: Normal Inspection, No Blood Throat/Mouth: Normal Lips, Normal Oropharynx, Normal Voice, No Airway Compromise , Other (anterior teeth are black). No: Normal Teeth Head: Atraumatic, Normocephalic Neck: Normal Inspection. No: Lymphadenopathy (R), Lymphadenopathy (L) Respiratory/Chest: No Respiratory Distress, Lungs Clear, Normal Breath Sounds, No Accessory Muscle Use Cardiovascular: Regular Rate, Rhythm, No Edema GI/Abdominal Exam: Soft, No Distention, Tender. No: Non-Tender, Distended Extremities: Normal Inspection, Normal Range of Motion, Non-Tender, No Pedal Edema Neurological: Alert, Oriented, CN II-XII Intact, Normal Cognition, No Motor/ Sensory Deficits Psychiatric: Normal Affect, Anxious Skin Exam: Warm, Dry, Intact, Normal Color, No Rash Course - Vital Signs Last Recorded V/S: Last Vital Signs Temp 36.6 C 08/24/19 08:12 Pulse 88 08/24/19 08:12 Resp 18 08/24/19 08:12 BP 110/82 08/24/19 08:12 Pulse Ox 99 08/24/19 08:12 - Orders/Labs/Meds Labs: Laboratory Tests 08/24/19 08/24/19 08/24/19 Range/Units 07:56 07:56 09:34 WBC 11.5 H (4.5-11.0) K/uL RBC 4.70 (4.30-5.90) M/uL Hgb 14.8 (12.0-15.0) g/dL Hct 44.1 (40.0-54.0) % MCV 94 (80-98) fL MCH 32 H (27-31) pg MCHC 34 (32-36) % Plt Count 243 (150-400) K/uL Sodium 143 (140-148) mmol/L Potassium 3.7 (3.6-5.2) mmol/L Chloride 105 (100-108) mmol/L Carbon Dioxide 26 (21-32) mmol/L Anion Gap 11.6 (5.0-14.0) mmol/L BUN 12 D (7-18) mg/dL Creatinine 0.9 (0.8-1.3) mg/dL Est Cr Clr Drug Dosing 112.35 mL/min Estimated GFR (MDRD) > 60 (>60) Glucose 138 H (74-106) mg/dL Calcium 8.8 (8.5-10.1) mg/dL Total Bilirubin 0.2 (0.2-1.0) mg/dL AST 20 (15-37) U/L ALT 25 (12-78) U/L Alkaline Phosphatase 86 (46-116) U/L Total Protein 7.4 (6.4-8.2) g/dL Albumin 3.9 (3.4-5.0) g/dL Globulin 3.5 (2.3-3.5) g/dL Albumin/Globulin Ratio 1.1 L (1.2-2.2) Lipase 96 (73-393) U/L Urine Color (YELLOW) Urine Appearance (CLEAR) Urine pH (5.0-8.0) Ur Specific [place] (1.008-1.030) Urine Protein (NEGATIVE) mg/dL Urine Glucose (UA) (NEGATIVE) mg/dL Urine Ketones (NEGATIVE) mg/dL Urine Occult Blood (NEGATIVE) Urine Nitrite (NEGATIVE) Urine Bilirubin (NEGATIVE) Urine Urobilinogen (0.2-1.0) EU/dL Ur Leukocyte Esterase (NEGATIVE) Urine RBC (0-5) Urine WBC (0-5) Ur Epithelial Cells Amorphous Sediment Urine Bacteria Urine Mucus Urine Opiates Screen Presumptive positive H (NEGATIVE) Ur Oxycodone Screen Negative (NEGATIVE) Urine Methadone Screen Negative (NEGATIVE) Ur Propoxyphene Screen Negative (NEGATIVE) Ur Barbiturates Screen Negative (NEGATIVE) Ur Tricyclics Screen Negative (NEGATIVE) Ur Phencyclidine Scrn Negative (NEGATIVE) Ur Amphetamine Screen Negative (NEGATIVE) U Methamphetamines Scrn Negative (NEGATIVE) Urine MDMA Screen Negative (NEGATIVE) U Benzodiazepines Scrn Presumptive positive H (NEGATIVE) U Cocaine Metab Screen Negative (NEGATIVE) U Marijuana (THC) Screen Presumptive positive H (NEGATIVE) 08/24/19 Range/Units 09:34 WBC (4.5-11.0) K/uL RBC (4.30-5.90) M/uL Hgb (12.0-15.0) g/dL Hct (40.0-54.0) % MCV (80-98) fL MCH (27-31) pg MCHC (32-36) % Plt Count (150-400) K/uL Sodium (140-148) mmol/L Potassium (3.6-5.2) mmol/L Chloride (100-108) mmol/L Carbon Dioxide (21-32) mmol/L Anion Gap (5.0-14.0) mmol/L BUN (7-18) mg/dL Creatinine (0.8-1.3) mg/dL Est Cr Clr Drug Dosing mL/min Estimated GFR (MDRD) (>60) Glucose (74-106) mg/dL Calcium (8.5-10.1) mg/dL Total Bilirubin (0.2-1.0) mg/dL AST (15-37) U/L ALT (12-78) U/L Alkaline Phosphatase (46-116) U/L Total Protein (6.4-8.2) g/dL Albumin (3.4-5.0) g/dL Globulin (2.3-3.5) g/dL Albumin/Globulin Ratio (1.2-2.2) Lipase (73-393) U/L Urine Color Yellow (YELLOW) Urine Appearance Slightly cloudy A (CLEAR) Urine pH >= 9.0 H (5.0-8.0) Ur Specific [place] 1.015 (1.008-1.030) Urine Protein Trace H (NEGATIVE) mg/dL Urine Glucose (UA) Negative (NEGATIVE) mg/dL Urine Ketones Negative (NEGATIVE) mg/dL Urine Occult Blood Negative (NEGATIVE) Urine Nitrite Negative (NEGATIVE) Urine Bilirubin Negative (NEGATIVE) Urine Urobilinogen 0.2 (0.2-1.0) EU/dL Ur Leukocyte Esterase Negative (NEGATIVE) Urine RBC Not seen (0-5) Urine WBC 0-5 (0-5) Ur Epithelial Cells Not seen Amorphous Sediment Moderate Urine Bacteria Not seen Urine Mucus Not seen Urine Opiates Screen (NEGATIVE) Ur Oxycodone Screen (NEGATIVE) Urine Methadone Screen (NEGATIVE) Ur Propoxyphene Screen (NEGATIVE) Ur Barbiturates Screen (NEGATIVE) Ur Tricyclics Screen (NEGATIVE) Ur Phencyclidine Scrn (NEGATIVE) Ur Amphetamine Screen (NEGATIVE) U Methamphetamines Scrn (NEGATIVE) Urine MDMA Screen (NEGATIVE) U Benzodiazepines Scrn (NEGATIVE) U Cocaine Metab Screen (NEGATIVE) U Marijuana (THC) Screen (NEGATIVE) Meds: Medications Discontinued Medications Generic Name Dose Route Start Last Admin Trade Name Freq PRN Reason Stop Dose Admin Diphenhydramine HCl 25 mg 08/24/19 07:48 08/24/19 08:01 Benadryl IVPUSH 08/24/19 07:49 25 mg ONETIME ONE Administration Diphenhydramine HCl 25 mg 08/24/19 10:14 08/24/19 10:26 Benadryl IVPUSH 08/24/19 10:15 25 mg ONETIME ONE Administration Hydromorphone HCl 0.5 mg 08/24/19 07:47 08/24/19 08:01 Dilaudid IVPUSH 08/24/19 07:48 0.5 mg ONETIME ONE Administration Lactated Ringer's 1,000 mls @ 1,000 mls/hr 08/24/19 07:46 08/24/19 09:34 Ringers, Lactated IV 08/24/19 08:45 1,000 mls/hr BOLUS ONE Administration Lactated Ringer's 1,000 mls @ 1,000 mls/hr 08/24/19 09:08 08/24/19 09:36 Ringers, Lactated IV 08/24/19 10:07 1,000 mls/hr BOLUS ONE Administration Ondansetron HCl 4 mg 08/24/19 10:14 08/24/19 10:29 Zofran IVPUSH 08/24/19 10:15 4 mg ONETIME ONE Administration Prochlorperazine Edisylate 10 mg 08/24/19 07:48 08/24/19 08:01 Compazine IVPUSH 08/24/19 07:49 10 mg ONETIME ONE Administration Prochlorperazine Edisylate 5 mg 08/24/19 08:37 08/24/19 08:47 Compazine IVPUSH 08/24/19 08:38 5 mg ONETIME ONE Administration - Re-Assessments/Exams Free Text/Narrative Re-Assessment/Exam: 08/24/19 10:45 Partial improvement with tx, wants to go. Departure - Departure Time of Disposition: 10:46 Disposition: Home, Self-Care 01 Condition: Fair Clinical Impression: Cannabinoid hyperemesis syndrome - Discharge Information *PRESCRIPTION DRUG MONITORING PROGRAM REVIEWED*: No *COPY OF PRESCRIPTION DRUG MONITORING REPORT IN PATIENT MURRAY: No Instructions: Cannabis Use Disorder Forms: ED Department Discharge Additional Instructions: Use Zofran as directed for nausea control. Get established with a local doctor for follow up. No marijuana smoking as this causes your condition. Clear liquid diet today. Sepsis Event Note - Focused Exam Vital Signs: Vital Signs Temp Pulse Resp BP Pulse Ox 08/24/19 08:12 36.6 C 88 18 110/82 99 Date Exam was Performed: 08/24/19 Time Exam was Performed: 10:45
[2019-08-24] MEDS: Lactated Ringers 1,000 ML IV ONE ×2 (08:01→09:34)
[2019-08-24 08:14] VITALS: BP 110/82; PULSE 88
[2019-08-24] MEDS ORDERED: Lactated Ringers 1,000 ML IV ONE (09:08)
[2019-08-24] MEDS ORDERED: Ondansetron 4 MG/2 ML SDV IVPUSH ONE (10:14)
== END 2019-08-24 10:52 | disposition home or self-care (01) ==
LOC: JP.ED 07:45
DX: F12.188 Cannabis abuse with other cannabis-induced disorder (principal); R11.2 Nausea with vomiting, unspecified; Z88.6 Allergy status to analgesic agent
CPT/HCPCS: 36415; 80053; 80305; 81001; 83690; 85027; 96361; 96374; 96375; 96376; 99284; J0780; J1170; J1200; J2405; J7120

== ENCOUNTER 2020-03-19 10:03 | Emergency (ER) | payer MEDICAID ==
[2020-03-19] MEDS ORDERED: Prochlorperazine 10 MG/2 ML SDV IVPUSH ONE (10:34)
[2020-03-19] MEDS ORDERED: Lactated Ringers 1,000 ML IV ONE (10:34)
[2020-03-19] MEDS ORDERED: Ketorolac 30 MG/ML SDV IVPUSH ONE (10:35)
[2020-03-19] MEDS ORDERED: diphenhydrAMINE 50 MG/ML SDV IVPUSH ONE (10:35)
[2020-03-19] MEDS ORDERED: LORazepam 2 MG/ML SDV IVPUSH ONE (10:37)
--- NOTE | 2020-03-19 10:43 | EDM.PDOC ---
ED HPI GENERAL MEDICAL PROBLEM - General Chief Complaint: Abdominal Pain Stated Complaint: SEVERE LT SIDE PAIN Time Seen by Provider: 03/19/20 10:25 Source of Information: Reports: Patient, Old Records, RN History Limitations: Reports: No Limitations - History of Present Illness INITIAL COMMENTS - FREE TEXT/NARRATIVE: 34 yo male presents with abdominal pain since 0200h today. He reports some vomiting as well with a small amt of blood present in the emesis. No fever. Bowels OK. Has had less severe episodes of this in the past and was seen here for this. Denies recent street drug use. Onset: Today, Sudden Onset Date: 03/19/20 Onset Time: 02:00 Duration: Getting Worse Location: Reports: Abdomen Quality: Reports: Ache Severity: Severe Improves with: Reports: None Worsens with: Reports: Other (unsure) Context: Reports: Other (See HPI) Associated Symptoms: Reports: Nausea/Vomiting. Denies: Fever/Chills Treatments WET SANDER: Reports: Other (see below) (none) Left Lower Abdomen Pain Score (Numeric/FACES): 10 - Related Data Allergies Allergy/AdvReac Type Severity Reaction Status Date / Time meperidine HCl [From Demerol] Allergy Intermediate Itching Verified 03/19/20 10:11 tramadol Allergy Intermediate Hives Verified 03/19/20 10:11 Home Meds: Home Meds Ondansetron [Zofran ODT] 4 mg PO Q6H PRN #7 tab.dis 08/24/19 [Rx] Past Medical History - Past Health History Medical/Surgical History: Denies Medical/Surgical History HEENT History: Reports: Other (See Below) Other HEENT History: poor dental care Gastrointestinal History: Reports: Other (See Below) Other Gastrointestinal History: Possible ulcers in past. Musculoskeletal History: Reports: Fracture Other Musculoskeletal History: Bilateral wrist fx Psychiatric History: Reports: Addiction, Anxiety, Other (See Below) Other Psychiatric History: meth Dermatologic History: Reports: Other (See Below) Other Dermatologic History: Tatoos - Infectious Disease History Infectious Disease History: Reports: Chicken Pox - Past Surgical History HEENT Surgical History: Reports: None GI Surgical History: Reports: EGD Musculoskeletal Surgical History: Reports: None Social & Family History - Family History Family Medical History: No Pertinent Family History - Tobacco Use Tobacco Use Status *Q: Current Every Day Tobacco User Years of Tobacco use: 10 Packs/Tins Daily: 1 - Caffeine Use Caffeine Use: Reports: Coffee, Soda - Recreational Drug Use Recreational Drug Use: Yes Recreational Drug Type: Reports: Marijuana/Hashish ED ROS GENERAL - Review of Systems Review Of Systems: See Below Constitutional: Reports: No Symptoms HEENT: Reports: No Symptoms Respiratory: Reports: No Symptoms Cardiovascular: Reports: No Symptoms Endocrine: Reports: No Symptoms GI/Abdominal: Reports: Abdominal Pain, Hematemesis, Nausea, Vomiting. Denies: Black Stool, Bloody Stool, Constipation, Diarrhea, Hematochezia : Reports: No Symptoms Musculoskeletal: Reports: No Symptoms Skin: Reports: No Symptoms Neurological: Reports: No Symptoms Psychiatric: Reports: Agitation ED EXAM, GI/ABD - Physical Exam Exam: See Below Exam Limited By: No Limitations General Appearance: Alert, WD/WN, Moderate Distress Eyes: Bilateral: Normal Appearance Ears: Normal External Exam, Normal Canal, Hearing Grossly Normal Nose: Normal Inspection, No Blood Throat/Mouth: Normal Inspection, Normal Lips, Normal Oropharynx, Normal Voice, No Airway Compromise. No: Normal Teeth (poor dentitian) Head: Atraumatic, Normocephalic Neck: Normal Inspection Respiratory/Chest: No Respiratory Distress, Lungs Clear, Normal Breath Sounds, No Accessory Muscle Use GI/Abdominal Exam: No Distention, Guarding, Rigid, Tender, Abnormal Bowel Sounds (decreased). No: Normal Bowel Sounds, Soft, Non-Tender, Distended Back Exam: Normal Inspection. No: CVA Tenderness (R), CVA Tenderness (L) Extremities: Normal Inspection, Normal Range of Motion, Non-Tender, No Pedal Edema Neurological: Alert, Oriented, CN II-XII Intact, Normal Cognition, No Motor/Sensory Deficits Psychiatric: Normal Affect, Normal Mood Skin Exam: Warm, Dry, Intact, Normal Color, No Rash Course - Vital Signs Last Recorded V/S: Last Vital Signs Temp Pulse 83 03/19/20 13:12 Resp BP 107/59 L 03/19/20 14:59 Pulse Ox 98 03/19/20 13:12 - Orders/Labs/Meds Labs: Laboratory Tests 03/19/20 03/19/20 03/19/20 Range/Units 10:32 10:32 10:55 WBC 11.3 H (4.5-11.0) K/uL RBC 4.36 (4.30-5.90) M/uL Hgb 13.7 (12.0-15.0) g/dL Hct 41.6 (40.0-54.0) % MCV 95 (80-98) fL MCH 31 (27-31) pg MCHC 33 (32-36) % Plt Count 298 (150-400) K/uL Sodium 135 L (140-148) mmol/L Potassium 4.2 (3.6-5.2) mmol/L Chloride 104 (100-108) mmol/L Carbon Dioxide 25 (21-32) mmol/L Anion Gap 10.2 (5.0-14.0) mmol/L BUN 13 (7-18) mg/dL Creatinine 0.9 (0.8-1.3) mg/dL Est Cr Clr Drug Dosing 89.88 mL/min Estimated GFR (MDRD) > 60 (>60) Glucose 110 H (74-106) mg/dL Calcium 8.1 L (8.5-10.1) mg/dL Total Bilirubin 0.1 L (0.2-1.0) mg/dL AST 23 (15-37) U/L ALT 31 (12-78) U/L Alkaline Phosphatase 81 (46-116) U/L Total Protein 6.6 (6.4-8.2) g/dL Albumin 3.4 (3.4-5.0) g/dL Globulin 3.2 (2.3-3.5) g/dL Albumin/Globulin Ratio 1.1 L (1.2-2.2) Lipase 317 (73-393) U/L Urine Color Yellow (YELLOW) Urine Appearance Cloudy A (CLEAR) Urine pH 8.5 H (5.0-8.0) Ur Specific [place] 1.020 (1.008-1.030) Urine Protein Negative (NEGATIVE) mg/dL Urine Glucose (UA) Negative (NEGATIVE) mg/dL Urine Ketones Negative (NEGATIVE) mg/dL Urine Occult Blood Negative (NEGATIVE) Urine Nitrite Negative (NEGATIVE) Urine Bilirubin Negative (NEGATIVE) Urine Urobilinogen 0.2 (0.2-1.0) EU/dL Ur Leukocyte Esterase Negative (NEGATIVE) Urine RBC 0-5 (0-5) Urine WBC 0-5 (0-5) Ur Epithelial Cells Not seen Amorphous Sediment Many Urine Bacteria Rare Urine Mucus Not seen Urine Opiates Screen (NEGATIVE) Ur Oxycodone Screen (NEGATIVE) Urine Methadone Screen (NEGATIVE) Ur Propoxyphene Screen (NEGATIVE) Ur Barbiturates Screen (NEGATIVE) Ur Tricyclics Screen (NEGATIVE) Ur Phencyclidine Scrn (NEGATIVE) Ur Amphetamine Screen (NEGATIVE) U Methamphetamines Scrn (NEGATIVE) Urine MDMA Screen (NEGATIVE) U Benzodiazepines Scrn (NEGATIVE) U Cocaine Metab Screen (NEGATIVE) U Marijuana (THC) Screen (NEGATIVE) 03/19/20 Range/Units 10:55 WBC (4.5-11.0) K/uL RBC (4.30-5.90) M/uL Hgb (12.0-15.0) g/dL Hct (40.0-54.0) % MCV (80-98) fL MCH (27-31) pg MCHC (32-36) % Plt Count (150-400) K/uL Sodium (140-148) mmol/L Potassium (3.6-5.2) mmol/L Chloride (100-108) mmol/L Carbon Dioxide (21-32) mmol/L Anion Gap (5.0-14.0) mmol/L BUN (7-18) mg/dL Creatinine (0.8-1.3) mg/dL Est Cr Clr Drug Dosing mL/min Estimated GFR (MDRD) (>60) Glucose (74-106) mg/dL Calcium (8.5-10.1) mg/dL Total Bilirubin (0.2-1.0) mg/dL AST (15-37) U/L ALT (12-78) U/L Alkaline Phosphatase (46-116) U/L Total Protein (6.4-8.2) g/dL Albumin (3.4-5.0) g/dL Globulin (2.3-3.5) g/dL Albumin/Globulin Ratio (1.2-2.2) Lipase (73-393) U/L Urine Color (YELLOW) Urine Appearance (CLEAR) Urine pH (5.0-8.0) Ur Specific [place] (1.008-1.030) Urine Protein (NEGATIVE) mg/dL Urine Glucose (UA) (NEGATIVE) mg/dL Urine Ketones (NEGATIVE) mg/dL Urine Occult Blood (NEGATIVE) Urine Nitrite (NEGATIVE) Urine Bilirubin (NEGATIVE) Urine Urobilinogen (0.2-1.0) EU/dL Ur Leukocyte Esterase (NEGATIVE) Urine RBC (0-5) Urine WBC (0-5) Ur Epithelial Cells Amorphous Sediment Urine Bacteria Urine Mucus Urine Opiates Screen Negative (NEGATIVE) Ur Oxycodone Screen Negative (NEGATIVE) Urine Methadone Screen Negative (NEGATIVE) Ur Propoxyphene Screen Negative (NEGATIVE) Ur Barbiturates Screen Negative (NEGATIVE) Ur Tricyclics Screen Negative (NEGATIVE) Ur Phencyclidine Scrn Negative (NEGATIVE) Ur Amphetamine Screen Negative (NEGATIVE) U Methamphetamines Scrn Negative (NEGATIVE) Urine MDMA Screen Negative (NEGATIVE) U Benzodiazepines Scrn Presumptive positive H (NEGATIVE) U Cocaine Metab Screen Negative (NEGATIVE) U Marijuana (THC) Screen Presumptive positive H (NEGATIVE) Meds: Medications Discontinued Medications Generic Name Dose Route Start Last Admin Trade Name Freq PRN Reason Stop Dose Admin Diphenhydramine HCl 50 mg 03/19/20 10:35 03/19/20 10:59 Benadryl IVPUSH 03/19/20 10:36 50 mg ONETIME ONE Administration Lactated Ringer's 1,000 mls @ 1,000 mls/hr 03/19/20 10:34 03/19/20 11:01 Ringers, Lactated IV 03/19/20 11:33 1,000 mls/hr BOLUS ONE Administration Ketorolac Tromethamine 30 mg 03/19/20 10:35 03/19/20 10:57 Toradol IVPUSH 03/19/20 10:36 30 mg ONETIME ONE Administration Lorazepam 1 mg 03/19/20 10:37 03/19/20 11:01 Ativan IVPUSH 03/19/20 10:38 1 mg ONETIME ONE Administration Prochlorperazine Edisylate 10 mg 03/19/20 10:34 03/19/20 10:53 Compazine IVPUSH 03/19/20 10:35 10 mg ONETIME ONE Administration - Re-Assessments/Exams Free Text/Narrative Re-Assessment/Exam: 03/19/20 11:25 Sleeping soundly after tx, abdomen completely soft and non-distended now. Free Text/Narrative Re-Assessment/Exam: 03/19/20 15:35 awake and sx free at time of d/c Departure - Departure Time of Disposition: 15:36 Disposition: Home, Self-Care 01 Condition: Good Clinical Impression: Cannabinoid hyperemesis syndrome, Marijuana smoker - Discharge Information *PRESCRIPTION DRUG MONITORING PROGRAM REVIEWED*: Not Applicable *COPY OF PRESCRIPTION DRUG MONITORING REPORT IN PATIENT MURRAY: Not Applicable Referrals: PCP,None [Primary Care Provider] - Forms: ED Department Discharge Additional Instructions: F/U with your doctor as needed. Read up on Cannabinoid Hyperemesis Syndrome. It can sometimes take months for this condition to stay away after you quit using. Sepsis Event Note (ED) - Evaluation Sepsis Screening Result: No Definite Risk - Focused Exam Vital Signs: Vital Signs Pulse BP Pulse Ox 03/19/20 14:59 107/59 L 03/19/20 13:12 83 136/59 L 98 03/19/20 11:15 47 L 118/76 03/19/20 11:05 57 L 128/99 H 03/19/20 10:10 91 139/99 H 98
[2020-03-19 13:13] VITALS: PULSE 83
[2020-03-19 15:00] VITALS: BP 107/59
== END 2020-03-19 15:47 | disposition home or self-care (01) ==
LOC: JP.ED 10:03
DX: R11.2 Nausea with vomiting, unspecified (principal); F17.290 Nicotine dependence, other tobacco product, uncomplicated; F17.210 Nicotine dependence, cigarettes, uncomplicated; Z88.6 Allergy status to analgesic agent
CPT/HCPCS: 36415; 80053; 80305; 81001; 83690; 85027; 96374; 96375; 99284; J0780; J1200; J1885; J2060; J7120